=== PATIENT | female | born 2000 | race American Indian/Alaskan Native ===

== ENCOUNTER 2019-04-08 06:09 | Emergency (ER) | payer SELFPAY ==
[2019-04-08 06:32] VITALS: BP 152/90
[2019-04-08 06:59] LABS: Bilirubin,Urine NEG (Negative); Blood,Urine SM (Negative); Color,Urine Yellow (Yellow); Mucus,Urine 3+ /HPF; Protein,Urine <15 mg/dL mg/dL (Negative); Urobilinogen,Urine < 2.0 mg/dL (<2.0)
[2019-04-08 07:04] LABS: HCG Qualitative,Urine Negative (Negative)
--- NOTE | 2019-04-08 07:40 | Emergency Department Report ---
ED Female HPI - General Chief complaint: Urogenital-Female Stated complaint: IRRITATION IN PRIVATE AREA Time Seen by Provider: 04/08/19 07:05 Source: patient Mode of arrival: Ambulatory Limitations: No Limitations - History of Present Illness Initial comments: Patient is a 19-year-old female presents the emergency room with complaints of vaginal discharge that began 4 days ago. She states she has associated vaginal odor and irritation. She denies any dysuria, fever, nausea, vomiting, abdominal pain. She states she is sexually active and had a new partner. She denies any history of STDs. The patient states her last cycle was 2 months ago but has a history of irregular cycles. She denies any past medical history or allergies to medications. - Related Data Previous Rx's Medication Instructions Recorded Last Taken Type metroNIDAZOLE [Flagyl] 500 mg PO BID 7 Days #14 tab 04/08/19 Unknown Rx Allergies Allergy/AdvReac Type Severity Reaction Status Date / Time No Known Allergies Allergy Unverified 04/08/19 06:32 ED Review of Systems ROS: Stated complaint: IRRITATION IN PRIVATE AREA Other details as noted in HPI Comment: All other systems reviewed and negative ED Past Medical Hx - Past Medical History Previous Medical History?: No - Surgical History Past Surgical History?: No - Social History Smoking Status: Never Smoker Substance Use Type: Marijuana - Medications Home Medications: Home Medications Medication Instructions Recorded Confirmed Last Taken Type metroNIDAZOLE [Flagyl] 500 mg PO BID 7 Days #14 tab 04/08/19 Unknown Rx ED Physical Exam - General Limitations: No Limitations General appearance: alert, in no apparent distress - Head Head exam: Present: atraumatic, normocephalic - Eye Eye exam: Present: normal appearance - ENT ENT exam: Present: mucous membranes moist - Respiratory Respiratory exam: Present: normal lung sounds bilaterally. Absent: respiratory distress, wheezes, rales, rhonchi, stridor, chest wall tenderness, accessory muscle use, decreased breath sounds, prolonged expiratory - Cardiovascular Cardiovascular Exam: Present: regular rate, normal rhythm, normal heart sounds. Absent: systolic murmur, diastolic murmur, rubs, gallop - GI/Abdominal GI/Abdominal exam: Present: soft, normal bowel sounds. Absent: distended, tenderness, guarding, rebound, rigid - External exam: Present: normal external exam. Absent: erythema, swelling, lesions, lacerations, ecchymosis, bleeding Speculum exam: Present: vaginal discharge (foul odor with white discharge), cervical discharge (foul odor with white discharge), other (construction equipment operator: SONDRA henry) Bi-manual exam: Present: normal bi-manual exam. Absent: cervical motion tendernes, adnexal tenderness, adnexal mass - Neurological Exam Neurological exam: Present: alert, oriented X3 - Psychiatric Psychiatric exam: Present: normal affect, normal mood - Skin Skin exam: Present: warm, dry, intact ED Course Vital Signs 04/08/19 06:28 Temperature 98 F Pulse Rate 103 H Respiratory 18 Rate Blood Pressure 152/90 O2 Sat by Pulse 98 Oximetry ED Medical Decision Making - Medical Decision Making Patient is a 19-year-old female presents the emergency room with complaints of vaginal discharge that began 4 days ago. She states she has associated vaginal odor and irritation. She denies any dysuria, fever, nausea, vomiting, abdominal pain. She states she is sexually active and had a new partner. She denies any history of STDs. The patient states her last cycle was 2 months ago but has a history of irregular cycles. She denies any past medical history or allergies to medications. VSS. no abd tenderness, no CMT on exam, low clinic suspicion for PID. urine preg is negative. UA without evidence of UTI. wet prep shows clue cells consistent with BV. G/C swab sent. pt is now stating her partner was just treated for gonorrhea, will tx pt prophylactically for G/C. pt given azithromycin and ceftriaxone while in the ED. given prescription for flagyl. advised to please take medication as prescribed. Do not drink alcohol while taking medication. Please check back with medical records in one week for results of your tests. Please have partner tested and treated as well. If concern for any other STDs please be seen by the health department or [facility]. Follow-up with an [facility] in the next 2-3 days. Return to the emergency room for any new or worsening symptoms. - Differential Diagnosis STD, UTI, vaginitis, yeast, BV, trichomonas, PID Critical care attestation.: If time is entered above; I have spent that time in minutes in the direct care of this critically ill patient, excluding procedure time. ED Disposition Clinical Impression: Bacterial vaginosis Disposition: TO HOME OR SELFCARE Is pt being admited?: No Does the pt Need Aspirin: No Condition: Stable Instructions: Bacterial Vaginosis (ED) Additional Instructions: Please take medication as prescribed. Do not drink alcohol while taking medication. Please check back with medical records in one week for results of your tests. Please have partner tested and treated as well. If concern for any other SCDs please be seen by the health department or [facility]. Follow-up with an [facility]ER in the next 2-3 days. Return to the emergency room for any new or worsening symptoms. Prescriptions: metroNIDAZOLE [Flagyl] 500 mg PO BID 7 Days #14 tab [facility]Primary Care Provider] - 2-3 Days [facility] [Provider Group] - 2-3 Days [facility] [Outside] - 2-3 Days Forms: STI Treatment and Prevention Time of Disposition: 08:18 Print Language: TOGOLESE
[2019-04-08] MEDS ORDERED: ROCEPHIN IM ONE (08:22)
[2019-04-08] MEDS ORDERED: XYLOCAINE 1% MPF 5 mL INFILTRATI ONE (08:22)
[2019-04-08] MEDS ORDERED: ZITHROMAX PO ONE (08:22)
== END 2019-04-08 08:59 | disposition home or self-care (01) ==
LOC: ED 06:09
DX: N76.0 Acute vaginitis (principal); F12.10 Cannabis abuse, uncomplicated; Z79.899 Other long term (current) drug therapy
CPT/HCPCS: 81001; 81025; 87210; 87591; 96372; 99284; J0696

== ENCOUNTER 2022-05-10 02:00 | Emergency (ER) | payer SELFPAY ==
[2022-05-10 02:10] VITALS: BP 139/100
== END 2022-05-10 04:20 | disposition left against medical advice (07) ==
LOC: ED 02:00
DX: T78.40XA Allergy, unspecified, initial encounter (principal); Z53.21 Procedure and treatment not carried out due to patient leaving prior to being seen by health care provider; X58.XXXA Exposure to other specified factors, initial encounter